=== PATIENT | male | born 1970 | race Hispanic/Latino ===

== ENCOUNTER 2018-02-26 13:10 | Emergency (ER) | payer SELFPAY ==
--- NOTE | 2018-02-26 13:42 | Emergency Department Report ---
ED Psych HPI - General Chief Complaint: Psych Stated Complaint: POSSIBLE OD Time Seen by Provider: 02/26/18 13:16 Source: patient Mode of arrival: Wheelchair - History of Present Illness Initial Comments: Patient is a 47 years old male who is unknown history to us. Patient brought to the ER by a coworker who stated that patient came out of the restroom and became unresponsive. Patient is alert and oriented in the ER in no acute distress but with obvious psychotic behavior. Patient is hyper-verbal, pressure speech and flights of ideas. Patient admitted using pain medication for the last 4 years and he stated that he took some pain medicine this morning. Patient denied any other medication or alcohol abuse. She denied any suicidal or homicidal ideation. No visual or auditory hallucination. MD Complaint: altered mental status ED Review of Systems ROS: Stated complaint: POSSIBLE OD Other details as noted in HPI Comment: All other systems reviewed and negative Respiratory: denies: cough, orthopnea, shortness of breath, SOB with exertion Gastrointestinal: denies: abdominal pain, nausea, vomiting Musculoskeletal: denies: back pain Neurological: denies: headache, weakness ED Past Medical Hx - Past Medical History Hx Hypertension: Yes Additional medical history: Lupus - Surgical History Past Surgical History?: No - Social History Smoking Status: Current Every Day Smoker Substance Use Type: Marijuana ED Physical Exam - General Limitations: No Limitations General appearance: alert, in no apparent distress, anxious, other (agitated) - Head Head exam: Present: atraumatic, normocephalic, normal inspection - Eye Eye exam: Present: normal appearance, PERRL - ENT ENT exam: Present: normal exam, normal orophraynx, mucous membranes moist - Neck Neck exam: Present: normal inspection, full ROM. Absent: tenderness, meningismus, lymphadenopathy, thyromegaly - Respiratory Respiratory exam: Present: normal lung sounds bilaterally. Absent: respiratory distress, wheezes, rales, rhonchi, chest wall tenderness, accessory muscle use, decreased breath sounds, prolonged expiratory - Cardiovascular Cardiovascular Exam: Present: regular rate, normal rhythm, normal heart sounds - GI/Abdominal GI/Abdominal exam: Present: soft, normal bowel sounds. Absent: distended, tenderness, guarding, rebound, rigid, organomegaly, mass, bruit, pulsatile mass - Extremities Exam Extremities exam: Present: normal inspection, full ROM, normal capillary refill. Absent: pedal edema - Back Exam Back exam: Present: normal inspection, full ROM - Neurological Exam Neurological exam: Present: alert, CN II-XII intact, normal gait - Psychiatric Psychiatric exam: Present: agitated, anxious, manic. Absent: flat affect, homicidal ideation, suicidal ideation - Skin Skin exam: Present: warm, intact, normal color ED Course Vital Signs 02/26/18 13:15 Temperature 98.8 F Pulse Rate 109 H Respiratory 22 Rate Blood Pressure 166/116 O2 Sat by Pulse 99 Oximetry ED Medical Decision Making - Lab Data Result diagrams: 02/26/18 13:42 02/26/18 13:42 - Radiology Data Radiology results: report reviewed Referring Physician: GABY RODRIGUEZ Patient Name: RICHIE TAPIA Date of : 1970 Sex: Male Report Date: 2018-02-26 Report Status: Finalized Findings [facility] [address] [place] [address] Cat Scan Report Signed Patient: RICHIE TAPIA MR#: [id number] : 1970 Acct:[id number] Age/Sex: 47 / M ADM Date: 02/26/18 Loc: ED Attending Dr: Ordering Physician: GABY RODRIGUEZ Date of Service: 02/26/18 Procedure(s): CT head/brain wo con Accession Number(s): [id number] cc: GABY RODRIGUEZ FINAL REPORT EXAM: CT HEAD/BRAIN WO CON HISTORY: AMS TECHNIQUE: CT examination of the head without IV contrast PRIORS: None. FINDINGS: Scattered mucosal thickening all visible paranasal sinuses. This is most prominent in the ethmoid sinuses. Clear mastoid air cells and middle ear cavities. Patient motion artifact degrades image quality and limits the examination. No acute air-fluid level visualized in the included air-filled sinuses. Bone windows demonstrate no acute fracture. There is ventricular and sulcal prominence compatible with global cerebrocortical atrophy. Low attenuation regions in the bilateral anterior cerebral white matter, while nonspecific, are present and usually attributed to chronic ischemic gliosis, right more than left. The brain contains no mass, mass effect, hemorrhage, or acute infarct. There is no extra-axial intracranial bleed or brain bleed. There is no midline shift. IMPRESSION: No definite CT evidence of acute CVA, intracranial bleed, or brain mass Slight bilateral white matter hypodensities may reflect early chronic ischemic gliosis. It can occur secondary to the normal aging process, hypertension, or arterial sclerotic vascular disease. The differential includes demyelination in the appropriate clinical setting. This is slightly more prominent in the right periventricular mathew radiata. Consider follow-up brain MRI to exclude subacute infarct, in the appropriate clinical setting Transcribed By: BAL Dictated By: KARYNA MORA MD Electronically Authenticated By: KARYNA MORA MD Signed Date/Time: 02/26/181515 DD/ 15 TD/TT: 02/26/181515 - Medical Decision Making Patient is a 47 years old male who is unknown history to us. Patient brought to the ER by a coworker who stated that patient came out of the restroom and became unresponsive. Patient is alert and oriented in the ER in no acute distress but with obvious psychotic behavior. Patient is hyper-verbal, pressure speech and flights of ideas. Patient admitted using pain medication for the last 4 years and he stated that he took some pain medicine this morning. Patient denied any other drug or alcohol abuse. He denied any suicidal or homicidal ideation. No visual or auditory hallucination. Patient urine drug screen came back positive for methamphetamine, cocaine and marijuana. I believe this is most likely a drug psychosis since patient did not have any psychiatric history before. Patient is already being seen by our mental health credit operations specialist, she recommended that patient can be discharged home after he is sober. Patient is alert, oriented 3 in no acute distress. Patient now admitted that the skin using drugs but he is not interested in rehabilitation now. Critical care attestation.: If time is entered above; I have spent that time in minutes in the direct care of this critically ill patient, excluding procedure time. ED Disposition Clinical Impression: Drug psychosis, Polysubstance abuse Disposition: DC-01 TO HOME OR SELFCARE Is pt being admited?: No Condition: Stable Instructions: Polysubstance Abuse (ED) Referrals: DYLAN JACKSON JR, MD [Staff Physician] - 3-5 Days
[2018-02-26 13:51] LABS: Basophils # (Auto) 0.1 K/mm3 (0.0-0.1); Basophils % (Auto) 0.6 % (0.0-1.8); Eosinophils # (Auto) 0.5 K/mm3 (0.0-0.4); Eosinophils % (Auto) 5.1 % (0.0-4.3); Hematocrit 40.3 % (35.5-45.6); Lymphocytes # (Auto) 1.9 K/mm3 (1.2-5.4); Lymphocytes % (Auto) 19.8 % (13.4-35.0); Mean Corpuscular HGB Conc 35 % (32-34); Mean Corpuscular Hemoglobin 34 pg (28-32); Mean Corpuscular Volume 99 fl (84-94); Monocytes # (Auto) 0.7 K/mm3 (0.0-0.8); Platelet Count 222 K/mm3 (140-440); Red Blood Count 4.08 M/mm3 (3.65-5.03); Red Cell Distribution Width 13.4 % (13.2-15.2)
[2018-02-26 14:18] LABS: Albumin 4.3 g/dL (3.9-5); Calcium 8.9 mg/dL (8.4-10.2)
--- NOTE | 2018-02-26 15:18 | Cat Scan Report ---
FINAL REPORT EXAM: CT HEAD/BRAIN WO CON HISTORY: AMS TECHNIQUE: CT examination of the head without IV contrast PRIORS: None. FINDINGS: Scattered mucosal thickening all visible paranasal sinuses. This is most prominent in the ethmoid sinuses. Clear mastoid air cells and middle ear cavities. Patient motion artifact degrades image quality and limits the examination. No acute air-fluid level visualized in the included air-filled sinuses. Bone windows demonstrate no acute fracture. There is ventricular and sulcal prominence compatible with global cerebrocortical atrophy. Low attenuation regions in the bilateral anterior cerebral white matter, while nonspecific, are present and usually attributed to chronic ischemic gliosis, right more than left. The brain contains no mass, mass effect, hemorrhage, or acute infarct. There is no extra-axial intracranial bleed or brain bleed. There is no midline shift. IMPRESSION: No definite CT evidence of acute CVA, intracranial bleed, or brain mass Slight bilateral white matter hypodensities may reflect early chronic ischemic gliosis. It can occur secondary to the normal aging process, hypertension, or arterial sclerotic vascular disease. The differential includes demyelination in the appropriate clinical setting. This is slightly more prominent in the right periventricular mathew radiata. Consider follow-up brain MRI to exclude subacute infarct, in the appropriate clinical setting
[2018-02-26 15:26] LABS: Benzodiazepines Screen,Urine PRESUMPTIVE NEGATIVE; Methadone Screen,Urine PRESUMPTIVE NEGATIVE; Opiate Screen,Urine PRESUMPTIVE NEGATIVE
[2018-02-26 15:30] LABS: Bilirubin,Urine NEG (Negative); Blood,Urine NEG (Negative); Color,Urine Yellow (Yellow); Mucus,Urine FEW /HPF; Urobilinogen,Urine < 2.0 mg/dL (<2.0)
[2018-02-26 15:38] LABS: Amphetamine Screen,Urine PRESUMPTIVE POSITIVE; Cannabinoid Screen,Urine PRESUMPTIVE POSITIVE; Cocaine Screen,Urine PRESUMPTIVE POSITIVE
[2018-02-26 20:25] VITALS: BP 145/89
[2018-02-26 22:43] LABS: Calcium Oxalate Crystals,Urine 2+; Hyaline Casts,Urine 3 /LPF
== END 2018-02-26 20:45 | disposition home or self-care (01) ==
LOC: ED 13:10
DX: F19.159 Other psychoactive substance abuse with psychoactive substance-induced psychotic disorder, unspecified (principal); I10 Essential (primary) hypertension; F17.200 Nicotine dependence, unspecified, uncomplicated; F12.10 Cannabis abuse, uncomplicated
CPT/HCPCS: 36415; 70450; 80053; 80307; 81001; 85025; 99284; G0480; 80320